=== PATIENT | male | born 1985 | race African-American/Black ===

== ENCOUNTER 2021-12-12 08:33 | Emergency (ER) | payer SELFPAY ==
[~2021-12-12] VITALS: Ht 182.9 cm; Wt 97.5 kg
--- NOTE | 2021-12-12 08:53 | NUR ---
Breakfast tray provided, ate w/ good appettite.
--- NOTE | 2021-12-12 08:56 | NUR ---
Dr Mcghee at the bedside for evaluation.
[2021-12-12 09:31] LABS: MEAN CORPUSCULAR HEMOGLOBIN 30.3 uug (23.8-33.4); MEAN CORPUSCULAR VOLUME 91.2 fL (73.0-96.2); PLATELET COUNT (AUTO) 347 K/uL (152-348)
[2021-12-12 09:33] LABS: ALANINE AMINOTRANSFERASE 26 U/L (16-63); ALKALINE PHOSPHATASE 55 U/L (50-136); ASPARTATE AMINOTRANSFERASE 23 U/L (15-37); BILIRUBIN,TOTAL 0.5 mg/dL (0.2-1.0); CARBON DIOXIDE 31 mmol/L (21-32); CHLORIDE 105 mmol/L (98-107); CREATININE 0.8 mg/dL (0.6-1.3); GLUCOSE 90 mg/dL (74-106); POTASSIUM 4.3 mmol/L (3.5-5.1); TOTAL PROTEIN, SERUM 7.2 g/dL (6.4-8.2); UREA NITROGEN, BLOOD 16 mg/dL (7-18)
[2021-12-12] MEDS ORDERED: NAPR-1192 PO (09:54)
[2021-12-12 10:23] VITALS: BP 121/82
--- NOTE | 2021-12-12 10:59 | NUR ---
Patient given written and verbal discharge instructions. Patient verbalizes understanding of instructions. Patient is ambulatory with steady gait. Refuses offer of senior living placement. Patient given list of available shelters in surrounding area.
== END 2021-12-12 11:00 | disposition home or self-care (01) ==
LOC: ER 08:33
DX: R53.81 Other malaise (principal); S90.829A Blister (nonthermal), unspecified foot, initial encounter; T73.0XXA Starvation, initial encounter; X58.XXXA Exposure to other specified factors, initial encounter; Z59.00 Homelessness unspecified
CPT/HCPCS: 36415; 85025; A4663

== ENCOUNTER 2021-12-14 10:34 | Emergency (ER) | payer SELFPAY ==
[~2021-12-14] VITALS: Ht 182.9 cm; Wt 97.5 kg
[~2021-12-14 10:34] MED LIST: NAPR-1192 PO
--- NOTE | 2021-12-14 11:15 | NUR ---
Patient given written and verbal discharge instructions. Patient verbalizes understanding of instructions. Patient is ambulatory with steady gait. Refuses offer of correction placement. Patient given list of available shelters in surrounding area.
== END 2021-12-14 11:17 | disposition home or self-care (01) ==
LOC: ER 10:38
DX: S09.90XA Unspecified injury of head, initial encounter (principal); S09.93XA Unspecified injury of face, initial encounter; Y04.8XXA Assault by other bodily force, initial encounter; Y92.89 Other specified places as the place of occurrence of the external cause; Z59.00 Homelessness unspecified; H11.31 Conjunctival hemorrhage, right eye
CPT/HCPCS: A4663

== ENCOUNTER 2021-12-17 22:49 | Emergency (ER) | payer SELFPAY ==
--- NOTE | 2021-12-17 23:30 | NUR ---
Patient was just called at this time due to 2 emergency ocurring in the ER, but patient was not present in the waiting room or outside of ER.
--- NOTE | 2021-12-18 | NUR ---
Patient was called to be triaged but was not present in the waiting room or outside of ER. PATIENT WAS NOT TRIAGED OR SEEN BY ERMD.
== END 2021-12-18 00:01 | disposition left against medical advice (07) ==
LOC: ER 22:50
DX: Z53.21 Procedure and treatment not carried out due to patient leaving prior to being seen by health care provider (principal)

== ENCOUNTER 2021-12-18 11:36 | Emergency (ER) | payer SELFPAY ==
[~2021-12-18] VITALS: Ht 182.9 cm; Wt 97.5 kg
--- NOTE | 2021-12-18 11:44 | NUR ---
DR Frausto at the bedside for MSE.
--- NOTE | 2021-12-18 12:04 | NUR ---
Lunch tray provided.
[2021-12-18] MEDS ORDERED: NEOMY/BACITRA/POLYMYXIN B OINT UD PACKET TP ONE ×2 (12:15→12:24)
--- NOTE | 2021-12-18 12:53 | NUR ---
Pt started yelling at me and stand up infront of me in a threatenning way, called tosha steele. Security officers talking to pt.
--- NOTE | 2021-12-18 13:05 | NUR ---
Pt was scorted out of ER by security officers. Written and verbal care instructions provided by . Pt refused to sign discharge and homeless paperwork.
[2021-12-18 13:08] VITALS: BP 127/74
== END 2021-12-18 13:08 | disposition home or self-care (01) ==
LOC: ER 11:36
DX: S69.91XA Unspecified injury of right wrist, hand and finger(s), initial encounter (principal); Z79.899 Other long term (current) drug therapy; V49.9XXA Car occupant (driver) (passenger) injured in unspecified traffic accident, initial encounter; Y93.89 Activity, other specified; Y92.89 Other specified places as the place of occurrence of the external cause; Y99.8 Other external cause status
CPT/HCPCS: 73090; 73130; A4663